=== PATIENT | male | born 1940 | race Caucasian/White ===

== ENCOUNTER 2019-02-15 13:26 | Inpatient (IN) | payer MEDICARE, BC ==
[~2019-02-15] VITALS: Ht 177.8 cm; Wt 98.8 kg
[~2019-02-15 13:26] MED LIST: ASPI81CH PO; ATOR80 PO; Benadryl 50 mg50 MG PO; CARV25 PO; Cosamin Ds Tab1 EACH PO; DICMIS50EC PO; ENAL10 PO; Hytrin2 MG PO; SINEMET 25-1001 EACH PO; [UNRECOGNIZED DRUG - OTHER] PO
--- NOTE | 2019-02-18 11:05 | NUR ---
LATE ENTRY: 0700 Ambulatory in Day Surgery. Surgical site prepped with 2% Chlorhexidine cloth wipe. History, Chart, Medications and Allergies reviewed before start of procedure. Lungs clear T/O to Auscultation. Patient confirms NPO status and agrees with scheduled surgery. Pre-Op teaching done. Pt verbalizes understanding. Patient reports completing Chlorhexadine shower X2 prior to admission to hospital. Completed 7 day shower/muciporin tx.
--- NOTE | 2019-02-18 13:19 | NUR ---
ACTIVITY: PT ASSISTED TO STAND WITH WALKER AND USE URINAL. PT TRANSFER TO CHAIR WITH 2 ASSIST, SURGICAL LEG BUCKLED AND PT HAD TO PIVOT. SENSATION WNL, HOWEVER PT STATES LEG FEELS LIKE "JELLO". ENCOURAGED TO SIT IN CHAIR TOLERATED AND REMINDED TO CALL FOR ASSIST FOR ANY ACTIVITY.
--- NOTE | 2019-02-18 18:59 | NUR ---
PT HAS BEEN STABLE POST OP. PT UP TO CHAIR WITH MODERATE ASSIST, LEGS BUCKLE EASILY. THERAPY DEFERRED TILL TOMORROW. PT HAS NO COMPLAINTS OF PAIN. PT VOIDING WITH URINAL. CONT IV FLUIDS ORDERED, MAY SL. TOLERATING REGULAR DIET. AQUACEL CDI. PAS, TEDS AND POLAR PACK IN PLACE. PT USES CALL LIGHT APPROPRIATELY PRN.
[2019-02-19 04:16] LABS: BASOPHILS ABSOLUTE AUTO 0.04 K/mm3 (0.00-0.23); BASOPHILS PERCENT AUTO 0 % (0-2); EOSINOPHILS ABSOLUTE AUTO 0.01 K/mm3 (0.00-0.68); EOSINOPHILS PERCENT AUTO 0 % (0-6); Hematocrit 33.9 % (37.0-53.0); Hemoglobin 11.1 g/dL (13.5-17.5); IMMATURE GRAN ABSOLUTE AUTO 0.07 K/mm3 (0.00-0.10); IMMATURE GRAN PERCENT AUTO 1 % (0-1); LYMPHOCYTES ABSOLUTE AUTO 1.57 K/mm3 (0.84-5.20); LYMPHOCYTES PERCENT AUTO 13 % (21-46); MONOCYTES ABSOLUTE AUTO 1.19 K/mm3 (0.16-1.47); MONOCYTES PERCENT AUTO 10 % (4-13); Mean Corpuscular HGB 30.1 pg (26.0-34.0); Mean Corpuscular HGB Conc 32.7 g/dL (31.5-36.5); Mean Corpuscular Volume 92 fL (80-100); Mean Platelet Volume 9.2 fL (9.1-12.4); NEUTROPHILS PERCENT AUTO 77 % (41-73); Platelet Count 248 K/mm3 (150-400); RDW Coefficient Variation 12.6 % (11.7-14.2); RDW Standard Deviation 42.2 fL (35.1-46.3); Red Blood Cell Count 3.69 M/mm3 (4.30-5.90); White Blood Cell Count 12.38 K/mm3 (4.00-11.30)
[2019-02-19 04:37] LABS: Anion Gap 7 mmol/L (6-16); Blood Urea Nitrogen 20 mg/dL (8-24); Bun/Creatinine Ratio 18.7 (12.0-20.0); CO2, Blood 24 mmol/L (21-32); Calcium, Blood 8.3 mg/dL (8.5-10.1); Chloride, Blood 107 mmol/L (98-108); Creatinine, Blood 1.07 mg/dL (0.60-1.20); Glomerular Filtration Rate >60 (60-); Glucose, Blood 120 mg/dL (70-99); Magnesium, Blood 2.1 mg/dL (1.6-2.4); Sodium, Blood 138 mmol/L (136-145)
--- NOTE | 2019-02-19 06:03 | NUR ---
SHIFT SUMMARY: CARLITOS IS POD1 FOR A LEFT TOTAL HIP, ANTERIOR APPROACH. HE HAS INTACT SENSATION AND WAS UP AMBULATING WITH A GAIT BELT AND FWW, ONE PERSON ASSIST. HE IS A&OX4, ABLE TO MAKE HIS NEEDS KNOWN. BRISK CAPILLARY REFILL IN BLE. AQUACELL C/D&I. MARLENA, PAS AND POLAR PACK IN PLACE. HE IS LYING IN THE RECLINER AT HIS BEDSIDE WITH HIS CALL LIGHT IN REACH. VSS. NO ACUTE CHANGES THIS HISFT.
[2019-02-19] MEDS ORDERED: Percocet 5-3251 EACH PO (08:45)
[2019-02-19] MEDS ORDERED: ASPI81CH PO (10:46)
--- NOTE | 2019-02-19 14:19 | NUR ---
DISCHARGE PT HAS DONE WELL TODAY. CLEARED THERAPY. PAIN WELL MANAGED. VOIDING, EATING, DRINKING. AQUACEL AND PAIN SCRIPT GIVEN. ESCORTED OUT VIA W/C.
== END 2019-02-19 14:17 | disposition home or self-care (01) | DRG 470 ==
LOC: SURS 02-18 06:10 → PRE IP 02-18 07:30 → SURS 02-18 11:27
PROVIDERS: ADMIT Orthopaedic Surgery
PROC: 0SRB04A Replacement of Left Hip Joint with Ceramic on Polyethylene Synthetic Substitute, Uncemented, Open Approach (ICD-10-PCS; principal; 2019-02-18 07:30)
DX: M16.12 Unilateral primary osteoarthritis, left hip (principal); I10 Essential (primary) hypertension
CPT/HCPCS: 36415; 72170; 80048; 83735; 85025; 88300; 97110; 97116; 97162; 97530; C1776; J0171; J0690; J0735; J1100; J1885; J2250; J2370; J2405; J2704; J2795; J3010; J7120; Q0163

== ENCOUNTER → 2019-04-11 | Outpatient (CLI) | payer MEDICARE, BC ==
[~2019-04-11] MED LIST changes: +Percocet 5-3251 EACH PO
== END | disposition home or self-care (01) ==
LOC: LAB SHORT 16:00 → LAB 16:00
DX: R53.83 Other fatigue (principal); R50.9 Fever, unspecified
CPT/HCPCS: 87086

== ENCOUNTER → 2019-12-30 | Outpatient (CLI) | payer MEDICARE, BC ==
[2019-12-30 12:33] LABS: Source, Urine Clean Catch
[2019-12-30 13:44] LABS: Appearance, Urine Hazy (Clear); Bilirubin, Urine Neg (Neg); Blood, Urine 3+ (Neg); Color, Urine Yellow (P-Yellow); Glucose Qualitative, Urine Neg (Neg); Ketones, Urine Neg (Neg); Leukocyte Esterase, Urine 3+ (Neg); Nitrite, Urine Neg (Neg); Protein, Urine Neg (Neg); Urobilinogen, Urine NORM (Normal)
[2019-12-30 14:14] LABS: White Blood Cells, Urine 50-100 /hpf (0-5)
[2019-12-30 14:15] LABS: Bacteria Many /hpf; Mucus Light (0-Heavy); Squamous Epithelial Cells Rare /hpf (Few)
== END | disposition home or self-care (01) ==
LOC: LAB SHORT 12:31 → LAB 12:31 → LAB FUT 12-29 10:55
PROVIDERS: Internal Medicine
DX: R39.15 Urgency of urination (principal); R32 Unspecified urinary incontinence
CPT/HCPCS: 81001

== ENCOUNTER → 2020-02-17 | Outpatient (CLI) | payer MEDICARE, BC ==
[2020-02-17 08:56] LABS: Source, Urine Clean Catch
[2020-02-17 10:24] LABS: Bilirubin, Urine Neg (Neg); Blood, Urine Neg (Neg); Glucose Qualitative, Urine Neg (Neg); Ketones, Urine Neg (Neg); Leukocyte Esterase, Urine 1+ (Neg); Nitrite, Urine Neg (Neg); Protein, Urine Neg (Neg); Urobilinogen, Urine NORM (Normal)
[2020-02-17 10:32] LABS: Appearance, Urine Clear (Clear); Color, Urine Yellow (P-Yellow)
[2020-02-17 10:33] LABS: Bacteria Rare /hpf; Red Blood Cells, Urine 0-2 /hpf (0-2); Squamous Epithelial Cells Rare /hpf (Few)
[2020-02-17 10:34] LABS: Granular Casts 0-2 /lpf (0); Hyaline Casts 0-2 /lpf (0-2); Mucus Light (0-Heavy)
== END | disposition home or self-care (01) ==
LOC: LAB 08:50 → LAB SHORT 08:50 → LAB FUT 02-13 15:45
PROVIDERS: Nurse Practitioner
DX: R35.0 Frequency of micturition (principal)
CPT/HCPCS: 81001; 87086

== ENCOUNTER 2021-05-07 11:42 | Day surgery (SDC) | payer MEDICARE, BC ==
[2021-05-07] MEDS ORDERED: Oxybutynin Chlo10 MG PO (14:37)
[2021-05-07] MEDS ORDERED: FAMO10 PO (15:01)
[2021-05-07] MEDS ORDERED: TAMS.4ER PO (15:16)
== END 2021-05-07 16:40 | disposition home or self-care (01) ==
LOC: ATC 11:42
DX: U07.1 COVID-19 (principal); I10 Essential (primary) hypertension
CPT/HCPCS: Q0247

== ENCOUNTER 2021-12-26 09:58 | Emergency (ER) | payer MEDICARE, BC ==
[~2021-12-26] VITALS: Ht 180.3 cm; Wt 93.0 kg
[~2021-12-26 09:58] MED LIST changes: +FAMO10 PO; +Oxybutynin Chlo10 MG PO; +TAMS.4ER PO
[2021-12-26] MEDS ORDERED: Veetids 500500 MG PO (22:01)
== END 2021-12-26 12:25 | disposition home or self-care (01) ==
LOC: ER 09:58
DX: S01.81XA Laceration without foreign body of other part of head, initial encounter (principal); S80.219A Abrasion, unspecified knee, initial encounter; W20.8XXA Other cause of strike by thrown, projected or falling object, initial encounter; Z79.899 Other long term (current) drug therapy; Z79.82 Long term (current) use of aspirin
CPT/HCPCS: 12014; 99282-25

== ENCOUNTER 2021-12-26 19:31 | Emergency (ER) | payer MEDICARE, BC ==
[~2021-12-26] VITALS: Ht 180.3 cm; Wt 93.0 kg
[2021-12-26] MEDS ORDERED: Veetids 500500 MG PO (22:01)
== END 2021-12-26 22:09 | disposition home or self-care (01) ==
LOC: ER 19:31
DX: T81.33XA Disruption of traumatic injury wound repair, initial encounter (principal); S01.511A Laceration without foreign body of lip, initial encounter; Y83.8 Other surgical procedures as the cause of abnormal reaction of the patient, or of later complication, without mention of misadventure at the time of the procedure; Z79.899 Other long term (current) drug therapy; Z79.82 Long term (current) use of aspirin; Z96.642 Presence of left artificial hip joint
CPT/HCPCS: A9270

== ENCOUNTER 2025-01-10 11:17 | Inpatient (IN) | payer MEDICARE, BC ==
[~2025-01-10] VITALS: Ht 172.7 cm; Wt 89.5 kg
[~2025-01-10 11:17] MED LIST changes: +COSAMIN DS PO; +DERMACINRX FOL1 EAC2 PO; +DICLOFENAC-MIS1 EAC5 PO; +Hair, Skin & N1 EACH PO; +LEVSOD75 PO; +MELATONIN5 M1 PO; +OMEP20ER PO; +Veetids 500500 MG PO; -[UNRECOGNIZED DRUG - OTHER] PO
[2025-01-10 11:51] LABS: BASOPHILS ABSOLUTE AUTO 0.14 K/mm3 (0.00-0.23); BASOPHILS PERCENT AUTO 2 % (0-2); EOSINOPHILS ABSOLUTE AUTO 0.25 K/mm3 (0.00-0.68); EOSINOPHILS PERCENT AUTO 3 % (0-6); Hematocrit 41.6 % (37.0-53.0); Hemoglobin 14.2 g/dL (13.5-17.5); IMMATURE GRAN ABSOLUTE AUTO 0.03 K/mm3 (0.00-0.10); IMMATURE GRAN PERCENT AUTO 0 % (0-1); LYMPHOCYTES ABSOLUTE AUTO 2.06 K/mm3 (0.84-5.20); LYMPHOCYTES PERCENT AUTO 22 % (21-46); MONOCYTES ABSOLUTE AUTO 0.68 K/mm3 (0.16-1.47); MONOCYTES PERCENT AUTO 7 % (4-13); Mean Corpuscular HGB Conc 34.1 g/dL (31.5-36.5); Mean Corpuscular Volume 93 fL (80-100); NEUTROPHILS ABSOLUTE AUTO 6.42 K/mm3 (1.96-9.15); NEUTROPHILS PERCENT AUTO 67 % (41-73); NRBC ABSOLUTE 0.00 K/mm3 (0.00-0.02); NRBC Auto 0.0 /100 WBC (0.0-0.2); Platelet Count 249 K/mm3 (150-400); RDW Coefficient Variation 13.4 % (11.7-14.2); RDW Standard Deviation 45.8 fL (35.1-46.3)
[2025-01-10 12:14] LABS: Alanine Aminotransfer (ALT/SGP 83.0 U/L (12-78); Albumin, Blood 3.8 g/dL (3.4-5.0); Albumin/Globulin Ratio 1.0 (0.8-1.8); Anion Gap 7.0 mmol/L (3-11); Aspartate Aminotrans (AST/SGOT 32.0 U/L (12-37); Bilirubin, Total 0.6 mg/dL (0.1-1.0); Blood Urea Nitrogen 35.0 mg/dL (8-24); CO2, Blood 23.0 mmol/L (21-32); Calcium, Blood 9.1 mg/dL (8.5-10.1); Chloride, Blood 110.0 mmol/L (98-108); Creatinine, Blood 1.26 mg/dL (0.60-1.20); Globulin, Blood 3.8 g/dL (2.2-4.0); Glucose, Blood 104.0 mg/dL (70-99); Potassium, Blood 4.3 mmol/L (3.5-5.5); Sodium, Blood 136.0 mmol/L (136-145); Total Protein, Blood 7.6 g/dL (6.4-8.2)
[2025-01-10] MEDS ORDERED: NS 1,000 ML IV SCH ×2 (16:35→18:30)
[2025-01-10] MEDS ORDERED: HydrALAZINE HCl 20 MG / ML 1ML Vial IV PRN (18:30)
[2025-01-10] MEDS ORDERED: Ondansetron HCl 2 MG / ML 2ML Vial IV PRN (18:30)
[2025-01-10] MEDS ORDERED: Labetalol HCL 5 MG/ML 4ML Injection (Single Dose) IV PRN (18:30)
[2025-01-10] MEDS ORDERED: FLU VACC TS2025(65UP)/MF59C/PF 45 MCG/0.5 ML SYRINGE IM SCH (18:35)
[2025-01-10 21:39] VITALS: BP 164/80
[2025-01-11] VITALS (7 sets, daily range): BP systolic 166–180; BP diastolic 75–96
--- NOTE | 2025-01-11 01:58 | NUR ---
ASSUMPTION OF CARE: THIS RN ASSUMED CARE OF PATIENT FROM FOSTER; OVERSEEING CARE OF ORIENTING RNLEODAN. BED IN LOWEST POSITION. CALL LIGHT WITHIN REACH. ACUTE NEEDS MET.
[2025-01-11 07:08] LABS: Alanine Aminotransfer (ALT/SGP 68 U/L (12-78); Albumin, Blood 3.5 g/dL (3.4-5.0); Albumin/Globulin Ratio 1.0 (0.8-1.8); Anion Gap 7 mmol/L (3-11); Aspartate Aminotrans (AST/SGOT 27 U/L (12-37); Bilirubin, Total 0.7 mg/dL (0.1-1.0); Blood Urea Nitrogen 22 mg/dL (8-24); CHOL/HDL RATIO 2.8; CO2, Blood 22 mmol/L (21-32); Calcium, Blood 9.3 mg/dL (8.5-10.1); Chloride, Blood 113 mmol/L (98-108); Cholesterol 125 mg/dL (50-200); Creatinine, Blood 0.87 mg/dL (0.60-1.20); Globulin, Blood 3.4 g/dL (2.2-4.0); Glucose, Blood 101 mg/dL (70-99); HDL Cholesterol 44 mg/dL (>39); LDL/HDL RATIO 1.4; Low Density Lipoprotein Chol 62 mg/dL (0-110); Potassium, Blood 3.9 mmol/L (3.5-5.5); Sodium, Blood 138 mmol/L (136-145); Total Protein, Blood 6.9 g/dL (6.4-8.2); Triglycerides 94 mg/dL (30-160); Very Low Density Lipoprot Chol 18 mg/dL (6-32)
[2025-01-11] MEDS ORDERED: Enoxaparin 40 MG/0.4 ML SYR SC SCH (09:00)
--- NOTE | 2025-01-11 18:24 | NUR ---
PATIENT UP AT BEDSIDE MOST OF DAY, FAMILY VISITED FOR A WHILE, PATIENT IS ABLE TO SPEAK AND UNDERSTAND WHAT IS BEING ASKED. PATIENT WOULD LIKE TO GO HOME SOON, SPOUSE IS HOPING FOR MONDAY SO SHE CAN GET RESOURCES FROM [employer] FOR HOME EQUIPMENT. CALL LIGHT WITHIN REACH.
--- NOTE | 2025-01-11 21:37 | NUR ---
PATIENT CONFUSED AND OUT OF BED ATTEMPT TO USE URINAL WITHOUT CALLING FOR ASSIST. BED ALARM ACTIVATED MULTIPLE TIMES. PATIENT ASSISTED WITH URINAL AND BACK IN BED. EM.
[2025-01-12] VITALS (9 sets, daily range): BP systolic 87–175; BP diastolic 54–91
--- NOTE | 2025-01-12 04:04 | NUR ---
SHIFT SUMMARY PATIENT HAD INCREASED AGITATION. NOT USING CALL LIGHT AND ACTIVATING BED ALARM SWINGING LEGS OUT OF BED TO USE URINAL MULTIPLE X'S. DENIES CHEST PAIN, SOB, AND N/V. VSS/AFEBRILE. LEFT SIDE DEFICITS. PIV INTACT. TELE MONITOR SB 62. REPORTS NOT SLEEPING WELL THE LAST FEW NIGHTS AND TO BE LEFT ALONE WHEN POSSIBLE TO SLEEP. CALL LIGHT IN REACH. BED IN LOWEST POSITION AND ALARM ON. WILL CONTINUE TO MONITOR UNTIL DAY SHIFT NURSE ASSUMES CARE.
[2025-01-12] MEDS ORDERED: Diltiazem HCl 5 MG / ML 5ML Vial IV ONE (12:40)
--- NOTE | 2025-01-12 12:43 | NUR ---
PT REPORTS SOB SITTING ON EDGE OF BED. BIOX 97% HR 79. BEDSIDE FAN TURNED ON AND PT REPORTS HE FEELS MUCH BETTER
--- NOTE | 2025-01-12 12:58 | NUR ---
1235 CALLED TELEMETRY TO CHECK ON PTS RHYTHM. PER TELE PT A FIB WITH HR OF 130'S. SPOKE WITH DR MEDINA AND NEW ORDERS RECEIVED. DISCUSSED WITH PT HIS ELEVATEDHEART RATE AND THAT WOULD BE GIVING IV MEDICATION TO BRING HR DOWN, PT STATES "I DONT GIVE A SHIT ABOUT MY HEART RATE I WANT A SHOWER NOW" DISCUSSED RISKS OF ELEVATED HR AND AFIB WITH PATIENT. PT SWITH ELEVATED VOICE AND STATES "IV'E ALREADY HAD A STROKE SO DONT CARE IF I HAVE ANOTHER" FURTHER DISCUSSION WITH PATIENT REGARDING A FIB , AFTER CONVERSATION PATIENT IS AGREEABLE TO WAIT ON SHOWER AND HAVE IV CARDIZEM
--- NOTE | 2025-01-12 21:49 | NUR ---
TELE MONITOR REPORTS AFIB AVERAGING 120'S-130. PO CARDEZIUM 30 MG GIVEN PER EMAR FOR HR >120. PATIENT RESTING/SLEEPING. WCTM.
[2025-01-13] VITALS (8 sets, daily range): BP systolic 91–123; BP diastolic 65–108
--- NOTE | 2025-01-13 02:13 | NUR ---
HR AFIB 82-117. WCTM.
--- NOTE | 2025-01-13 04:07 | NUR ---
SHIFT SUMMARY PATIENT GIVEN CARDIZEM 30 MG FOR HR AVERAGE >120. RECHECKED 82-117. ALERT ORIENTED WITH CONFUSION AT TIMES. IMPULISVE AND DOESN'T USE CALL LIGHT ACTIVATING BED ALARM TO SIT AND USE URINAL. DENIES CHEST PAIN, SOB, AND N/V. CALL LIGHT IN REACH. BED IN LOWEST POSITION AND ALARM ON. WILL CONTINUE TO MONITOR UNTIL DAY SHIFT NURSE ASSUMES CARE.
--- NOTE | 2025-01-13 19:23 | NUR ---
SHIFT SUMMARY PT A&OX4, L SIDED WEAKNESS R/T CVA. PLEASANT AND COOPERATIVE WITH CARE. AFIB AND SINUS TACH ON TELE FROM 108-132, CARDIZEM NOW SCHEDULED. PT REQUESTING INPATIENT REHAB, D/T CONCERNS OF SAFETY AT HOME. AWAITING PLACEMENT AT THIS TIME. ABLE TO MAKE NEEDS KNOWN, CALL LIGHT IN REACH.
[2025-01-14 01:12] VITALS: BP 112/98
[2025-01-14 03:42] VITALS: BP 103/63
--- NOTE | 2025-01-14 05:42 | NUR ---
Shift Summary AOx3-4. Impulsive. Pleasant. L side neglect. Denies pain. Slow to respond but answers questions appropriately. Patient had a 3 sec pause around 0445, asymptomatic and sleeping when the event occured. Dr. Jones has been notified. No new orders. IV saline locked. Afib 98-120s at start of shift; currently Afib 60s.
[2025-01-14 07:04] VITALS: BP 126/84
[2025-01-14 11:17] VITALS: BP 133/95
[2025-01-14] MEDS ORDERED: ELIQUIS5 M2 PO (12:20)
[2025-01-14] MEDS ORDERED: DILT60ER PO (12:27)
--- NOTE | 2025-01-14 14:27 | NUR ---
PT DISCHARGING TO [facility]. REPORT GIVEN TO RECTABITHAVING RN. PT IS ALERT AND ORIENTED X4, FLAT AFFECT. EXCITED FOR DISCHARGE. SPOUSE AT BEDSIDE
== END 2025-01-14 14:59 | DRG 65 ==
LOC: ER 11:17 → MEDS 18:27 → ENPENDDIS 01-14 11:41 → MEDS 01-14 14:59
PROVIDERS: Nurse Practitioner Acute Care; Student in an Organized Health Care Education/Training Program; ADMIT Internal Medicine
DX: I63.81 Other cerebral infarction due to occlusion or stenosis of small artery (principal); G81.94 Hemiplegia, unspecified affecting left nondominant side; R00.1 Bradycardia, unspecified; I44.0 Atrioventricular block, first degree; R29.706 NIHSS score 6; I10 Essential (primary) hypertension; E78.5 Hyperlipidemia, unspecified; E03.9 Hypothyroidism, unspecified; K21.9 Gastro-esophageal reflux disease without esophagitis; N40.0 Benign prostatic hyperplasia without lower urinary tract symptoms; C61 Malignant neoplasm of prostate; R29.810 Facial weakness; I48.91 Unspecified atrial fibrillation; R91.1 Solitary pulmonary nodule; Z96.642 Presence of left artificial hip joint; Z79.82 Long term (current) use of aspirin; Z79.890 Hormone replacement therapy; Z79.899 Other long term (current) drug therapy
CPT/HCPCS: 36415; 70450; 70496; 70498; 70551; 80053; 80061; 83036; 85025; 92610; 93005; 93010; 93306; 96360; 97110; 97162; 97165; 97530; 97535; 99285-25; A9270; J0360; J2470; J7030; Q9967